=== PATIENT | female | born 1955 | race American Indian/Alaskan Native ===

== ENCOUNTER 2017-07-19 09:47 | Day surgery (SDC) | payer MEDICAID ==
[2017-07-15 11:10] VITALS: BMI 44.7
[2017-07-19] MEDS ORDERED: Bupivacaine HCl 0.25% PF (10 ml) Inj ONE (12:10)
[2017-07-19] MEDS ORDERED: Lidocaine 1% Inj (20ml) ONE (12:10)
[2017-07-19] MEDS ORDERED: ceFAZolin IV 1 gm in Dextrose 2 GM/100 ML BAG IVPB ONE (12:10)
[2017-07-19] MEDS ORDERED: Midazolam 2 MG/2 ML VIAL ONE (12:13)
[2017-07-19] MEDS ORDERED: Propofol 10 mg/ml Inj (20 ML) ONE ×2 (12:13→12:31)
[2017-07-19] MEDS: HYDROmorphone 0.5 mg/0.5 ml ISec IVP PRN (13:30)
[2017-07-19] MEDS ORDERED: Oxycodone/Acetaminophen 5/325 mg Tab PO PRN (13:47)
[2017-07-19 15:25] VITALS: RESP 16; TEMP 97.3
[2017-07-19 17:46] VITALS: BP 129/99; PULSE 77; O2SAT 96
--- NOTE | 2017-07-19 22:29 | OP ---
PROCEDURE DATE: 07/19/2017 PREOPERATIVE DIAGNOSIS: Left breast mass x2. POSTOPERATIVE DIAGNOSIS: Left breast mass x2. PROCEDURE: 1. Wide and deep excision of a periareolar breast mass (). 2. Wide and deep excision of inferior left breast mass (). 3. Advancement flap closure (85641). 4. Repair of chest wall blood vessel (59322). SURGEON: Forrest Leyva MD TYPE OF ANESTHESIA: General. ESTIMATED BLOOD LOSS: 30 mL POSTOPERATIVE CONDITION: Stable. INDICATIONS FOR SURGERY: This is a 61-year-old female with two separate inflammatory mass in the past, who will undergo wide and deep excision of both. PROCEDURE: The patient was taken to the operating room, IV sedation was administered, both the areas were anesthetized after the left breast was prepped and draped. Attention was first time to the inferior breast mass, elliptical incision was made and the mass was excised down into the chest wall fascia. Bleeding was controlled with using the Bovie. Chest wall blood vessel was repaired. The wound was irrigated with copious amounts of saline solution. An advancement flap closure of left greater than 30 cm was performed by widely mobilizing using the Bovie and using multiple layers of Monocryl, subcuticular Monocryl and skin clips. The above was repeated on the periareolar incision in which a wide deep excision was made, it was excised deep into the breast, bleeding was controlled using the Bovie, advancement flaps were made and advancement flap closure was again performed with multiple layers of Vicryl, subcuticular Vicryl and skin clips. The patient tolerated the procedure well and returned to recovery in stable condition. Forrest Leyva MD
== END 2017-07-19 17:41 | disposition home or self-care (01) ==
LOC: C.SDS 09:47
PROVIDERS: ATTEND Surgery
DX: T14.8XXA Other injury of unspecified body region, initial encounter (principal); N63.23 Unspecified lump in the left breast, lower outer quadrant
CPT/HCPCS: 14301; 19120; 87070; 88307; J1170; J2250; J2405; J2704; J2765; J3010

== ENCOUNTER 2018-03-02 01:10 | Emergency (ER) | payer MEDICAID ==
[2018-03-02 01:10] VITALS: BMI 44.7
[2018-03-02 01:21] VITALS: RESP 20
--- NOTE | 2018-03-02 03:01 | C.PDOC ---
History Of Present Illness 62 year old female presents to the ER with a complaint of left hand pain. Patient states she accidentally hit her left hand on an iron door earlier today , she did not feel pain at the time but states she felt moderate pain tonight while trying to sleep which prompted visit. Patient reports taking ibuprofen at 22:00 with no relief. Denies blunt trauma, fall, weakness, or numbness. Time Seen by Provider: 03/02/18 01:25 Chief Complaint (Nursing): Upper Extremity Problem/Injury History Per: Patient History/Exam Limitations: no limitations Onset/Duration Of Symptoms: Hrs Current Symptoms Are (Timing): Still Present Recent travel outside of the [place]: No Past Medical History Reviewed: Historical Data, Nursing Documentation, Vital Signs Vital Signs: Last Vital Signs Temp 97.2 F L 03/02/18 03:21 Pulse 82 03/02/18 03:21 Resp 20 03/02/18 03:21 BP 116/70 03/02/18 03:21 Pulse Ox 96 03/02/18 03:21 - Medical History PMH: Arthritis, Bronchitis, COPD (LAST HOSPITALIZED 11/2016), HTN, Hypercholesterolemia - [facility] Procedures ASSISTANCE WITH RESPIRATORY VENTILATION, <24 HRS, CPAP (11/30/16) DRAINAGE OF LEFT BREAST, OPEN APPROACH (06/21/16) TRANSFER CHEST SKIN, EXTERNAL APPROACH (06/21/16) Family History: States: Unknown Family Hx - Social History Hx Tobacco Use: No Hx Alcohol Use: No Hx Substance Use: No - Immunization History Hx Tetanus Toxoid Vaccination: No Hx Influenza Vaccination: Yes Hx Pneumococcal Vaccination: No Review Of Systems Musculoskeletal: Positive for: Hand Pain Neurological: Negative for: Weakness, Numbness Physical Exam - Physical Exam Appears: Non-toxic Skin: Normal Color, Warm, Dry Head: Atraumatic, Normacephalic Eye(s): bilateral: Normal Inspection Extremity: Tenderness (Minimal on palpation of dorsal aspect of left hand), Capillary Refill (<2 seconds), No Deformity, No Swelling, No Other (Erythema, ecchymosis) Pulses: Left Radial: Normal, Right Radial: Normal Neurological/Psych: Oriented x3, Normal Speech, Normal Motor, Normal Sensation ED Course And Treatment O2 Sat by Pulse Oximetry: 97 (Room air) Pulse Ox Interpretation: Normal - Other Rad Left hand x-ray X-Ray: Interpreted by Me, Viewed By Me Interpretation: No acute fracture or dislocation. Progress Note: Left hand x-ray ordered, result were negative. Ultram administered for pain with relief. Patient is resting comfortably in the ER in no acute distress, vitals are stable, will discharge home with Rx and instructions to follow up with PMD or return if symptoms worsen. Disposition Counseled Patient/Family Regarding: Diagnosis, Need For Followup, Rx Given - Disposition Referrals: Amanda Rosales MD [Staff Provider] - Disposition: HOME/ ROUTINE Disposition Time: 02:59 Condition: STABLE Additional Instructions: Please follow up with PMD Continue ICE Take naproxen for pain Return to ER if worse Prescriptions: Naproxen [Naprosyn] 1 tab PO BID PRN #20 tab PRN Reason: Pain Instructions: Contusion (DC) Forms: Accompanied To ED By:, [employer] (French) - Clinical Impression Clinical Impression: Contusion of hand, left - PA / ELECTRICAL MAINTENANCE WORKER / Resident Statement MD/DO has reviewed & agrees with the documentation as recorded. - Scribe Statement The provider has reviewed the documentation as recorded by the Scribe Lemuel Camara All medical record entries made by the Amanuelibeli were at my direction and personally dictated by me. I have reviewed the chart and agree that the record accurately reflects my personal performance of the history, physical exam, medical decision making, and the department course for this patient. I have also personally directed, reviewed, and agree with the discharge instructions and disposition.
[2018-03-02 03:28] VITALS: BP 116/70; PULSE 82; TEMP 97.2
[2018-03-02 03:38] VITALS: O2SAT 97
--- NOTE | 2018-03-02 08:58 | RAD ---
PROCEDURE: Left Hand Radiographs. HISTORY: pain to left hand, blunt trauma COMPARISON: None. FINDINGS: BONES: No acute fracture. 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 There is productive bony change about the ununited fracture. JOINTS: Osteoarthritis at [facility] 1. The remaining joint spaces and articular surfaces are preserved. There are no articular erosions. The ulnar styloid process is preserved. SOFT TISSUES: Normal. OTHER FINDINGS: None. IMPRESSION: Osteoarthritis at [facility] 1. 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
== END 2018-03-02 03:21 | disposition home or self-care (01) ==
LOC: C.ER 01:10
DX: S60.222A Contusion of left hand, initial encounter (principal); W22.8XXA Striking against or struck by other objects, initial encounter

== ENCOUNTER 2018-10-12 01:51 | Emergency (ER) | payer MEDICAID ==
[2018-10-12 01:51] VITALS: BMI 44.7
[2018-10-12] MEDS ORDERED: Dexamethasone 4 mg/1 ml IM STA (03:20)
[2018-10-12] MEDS ORDERED: Dexamethasone 4 mg/1 ml ONE (03:35)
--- NOTE | 2018-10-12 04:07 | C.PDOC ---
History Of Present Illness 63 year old female presents to the ED c/o left hand pain since yesterday. Patient was seen by her PMD and as per patient she was not given anything. Patient states she was given Tramadol in the past but she recently ran out of them "They do not help anyway". Patient states she is now feeling tingling in her left hand. Patient denies rash, injury, fall, trauma, weakness, numbness. Time Seen by Provider: 10/12/18 02:56 Chief Complaint (Nursing): Upper Extremity Problem/Injury History Per: Patient History/Exam Limitations: no limitations Onset/Duration Of Symptoms: Days Current Symptoms Are (Timing): Still Present Quality: "Pain" Exacerbating Factor(s): Movement Recent travel outside of the [place]: No Additional History Per: Patient Past Medical History Reviewed: Historical Data, Nursing Documentation, Vital Signs Vital Signs: Last Vital Signs Temp 99.1 F 10/12/18 02:09 Pulse 84 10/12/18 02:09 Resp 20 10/12/18 02:09 BP 168/83 H 10/12/18 02:09 Pulse Ox 100 10/12/18 02:09 - Medical History PMH: Arthritis, Bronchitis, COPD (LAST HOSPITALIZED 11/2016), HTN, Hypercholesterolemia Denies: Chronic Kidney Disease Surgical History: No Surg Hx - [facility] Procedures ASSISTANCE WITH RESPIRATORY VENTILATION, <24 HRS, CPAP (11/30/16) DRAINAGE OF LEFT BREAST, OPEN APPROACH (06/21/16) TRANSFER CHEST SKIN, EXTERNAL APPROACH (06/21/16) Family History: States: Unknown Family Hx - Social History Hx Tobacco Use: No Hx Alcohol Use: Yes Hx Substance Use: No - Immunization History Hx Tetanus Toxoid Vaccination: No Hx Influenza Vaccination: Yes Hx Pneumococcal Vaccination: No Review Of Systems Constitutional: Negative for: Fever, Chills Gastrointestinal: Negative for: Nausea, Vomiting, Abdominal Pain Musculoskeletal: Positive for: Hand Pain Skin: Negative for: Rash Neurological: Negative for: Weakness, Numbness, Headache Physical Exam - Physical Exam Appears: Non-toxic, No Acute Distress Skin: Normal Color, Warm, Dry Head: Atraumatic, Normacephalic Eye(s): bilateral: Normal Inspection Extremity: Normal ROM, Tenderness (minimal left hand dorsal aspect), Capillary Refill (< 2 seconds), No Deformity, No Swelling, Other (no trigger finger prese nt ) Pulses: Left Radial: Normal, Right Radial: Normal Neurological/Psych: Oriented x3, Normal Speech, Normal Cognition, Normal Motor, Normal Sensation Gait: Steady ED Course And Treatment O2 Sat by Pulse Oximetry: 100 (ON RA) Pulse Ox Interpretation: Normal Progress Note: Plan: - Decadron 8 mg IM. - Toradol 30 mg IM. Pt is now sleeping comfortably in ED and reports pain improvement. Placed in sling and prednisone prescribed and albino follow up with PMD Reevaluation Time: 04:00 Reassessment Condition: Improved Disposition Counseled Patient/Family Regarding: Diagnosis, Need For Followup, Rx Given - Disposition Referrals: Amanda Rosales MD [Staff Provider] - Disposition: HOME/ ROUTINE Disposition Time: 04:04 Condition: STABLE Additional Instructions: Use sling for support Continue current pain management Continue prednisone Return to ER if worse Prescriptions: predniSONE [Prednisone] 40 mg PO DAILY #10 tab Instructions: Hand Pain (DC) Forms: [employer] (Syriac) - Clinical Impression Clinical Impression: Hand pain, left, Arthralgia of hand, left - PA / HOSPITAL SOCIAL WORKER / Resident Statement MD/DO has reviewed & agrees with the documentation as recorded. - Scribe Statement The provider has reviewed the documentation as recorded by the Scribe Roland Garrett All medical record entries made by the Scribe were at my direction and personally dictated by me. I have reviewed the chart and agree that the record a ccurately reflects my personal performance of the history, physical exam, medical decision making, and the department course for this patient. I have also personally directed, reviewed, and agree with the discharge instructions and disposition.
[2018-10-12 04:42] VITALS: BP 129/68; PULSE 76; RESP 14; TEMP 97.8
[2018-10-12 05:00] VITALS: O2SAT 100
== END 2018-10-12 04:53 | disposition home or self-care (01) ==
LOC: C.ER 01:51
DX: M79.642 Pain in left hand (principal); M25.542 Pain in joints of left hand; I10 Essential (primary) hypertension; E78.00 Pure hypercholesterolemia, unspecified
CPT/HCPCS: 96372; 99284; J1100; J1885

== ENCOUNTER 2018-10-22 12:32 | Emergency (ER) | payer MEDICAID | END 2018-10-22 14:13 | disposition home or self-care (01) | LOC: C.ER 12:32 ==

== ENCOUNTER 2018-11-15 08:08 | Emergency (ER) | payer MEDICAID ==
[2018-11-15 08:08] VITALS: BMI 44.7
--- NOTE | 2018-11-15 08:44 | C.PDOC ---
History Of Present Illness 63 [facility] of pain in her right hand that began yesterday. She describes the pain as generalized and has had swelling in her right wrist since September. She has been seen by several practitioners and orthopedic specialists and has been diagnosed with Rheumatoid Arthritis. Patient says she just started taking Methotrixate a few days ago, but was not prescribed anything for the pain. She states that her pipe bowl paint trimmer gave her a prescription yestreday, but the pharmacy couldn't read it and was trying to call her doctor to clarify without success. She is currently not taking any pain medication. She denies any numbness or weakness. Time Seen by Provider: 11/15/18 08:26 Chief Complaint (Nursing): Upper Extremity Problem/Injury History Per: Patient, EMS History/Exam Limitations: no limitations Onset/Duration Of Symptoms: Days (1) Current Symptoms Are (Timing): Still Present Quality: "Pain" Past Medical History Reviewed: Historical Data, Nursing Documentation, Vital Signs Vital Signs: Last Vital Signs Temp 97.4 F L 11/15/18 08:20 Pulse 86 11/15/18 08:20 Resp 20 11/15/18 08:20 BP Pulse Ox 99 11/15/18 08:20 - Medical History PMH: Arthritis, Bronchitis, COPD (LAST HOSPITALIZED 11/2016), HTN, Hypercholesterolemia, Rheumatoid Arthritis Denies: Chronic Kidney Disease Surgical History: No Surg Hx - [facility] Procedures ASSISTANCE WITH RESPIRATORY VENTILATION, <24 HRS, CPAP (11/30/16) DRAINAGE OF LEFT BREAST, OPEN APPROACH (06/21/16) TRANSFER CHEST SKIN, EXTERNAL APPROACH (06/21/16) Family History: States: Unknown Family Hx - Social History Hx Tobacco Use: No Hx Alcohol Use: Yes Hx Substance Use: No - Immunization History Hx Tetanus Toxoid Vaccination: No Hx Influenza Vaccination: Yes Hx Pneumococcal Vaccination: No Review Of Systems Constitutional: Negative for: Fever, Chills, Weakness Cardiovascular: Negative for: Chest Pain Respiratory: Negative for: Cough, Shortness of Breath Musculoskeletal: Positive for: Shoulder Pain (right shoulder), Hand Pain (right hand pain and right wrist swelling) Neurological: Negative for: Weakness, Numbness, Dizziness Physical Exam - Physical Exam Appears: Well, Non-toxic, No Acute Distress Skin: Normal Color, Warm, Dry Head: Atraumatic, Normacephalic Neck: Normal ROM, Supple Chest: Symmetrical, No Deformity Respiratory: No Accessory Muscle Use Extremity: Tenderness (right dorsal wrist), Capillary Refill (<2 seconds), Swelling (right hand and wrist) Pulses: Left Radial: Normal, Right Radial: Normal Neurological/Psych: Oriented x3, Normal Speech, Normal Cognition ED Course And Treatment O2 Sat by Pulse Oximetry: 99 (RA) Progress Note: Patient given Decadron IM,Toradol IM without improvement. Ordered Percocet PO with partial improvement. Disposition - Disposition Disposition: HOME/ ROUTINE Disposition Time: 11:53 Condition: STABLE Additional Instructions: Follow up with PMD, Blanking Press Operator and pipe bowl paint trimmer DAVINA. Return to ED if feel worse. Prescriptions: traMADol [Ultram] 50 mg PO Q6 #10 tab Instructions: Chronic Pain (DC), Rheumatoid Arthritis (ED) Forms: [employer] (Scottish) - Clinical Impression Clinical Impression: Chronic pain of multiple joints, Rheumatoid arthritis - PA / COLORMAN / Resident Statement MD/DO has reviewed & agrees with the documentation as recorded. (Jane Castillo) - Scribe Statement The provider has reviewed the documentation as recorded by the Scribe (Jane Castillo) All medical record entries made by the Scribe were at my direction and personally dictated by me. I have reviewed the chart and agree that the record accurately reflects my personal performance of the history, physical exam, medical decision making, and the department course for this patient. I have also personally directed, reviewed, and agree with the discharge instructions and disposition.
[2018-11-15] MEDS ORDERED: Dexamethasone 4 mg/1 ml IM STA (08:46)
[2018-11-15] MEDS ORDERED: Oxycodone/Acetaminophen 5/325 mg Tab PO STA (10:34)
[2018-11-15] MEDS ORDERED: Oxycodone/Acetaminophen 5/325 mg Tab ONE (10:45)
[2018-11-15 12:30] VITALS: BP 126/79; PULSE 88; RESP 20; TEMP 97.8
[2018-11-15 16:29] VITALS: O2SAT 99
== END 2018-11-15 12:30 | disposition home or self-care (01) ==
LOC: C.ER 08:08
DX: G89.29 Other chronic pain (principal); M06.9 Rheumatoid arthritis, unspecified; M25.50 Pain in unspecified joint; E78.00 Pure hypercholesterolemia, unspecified; I10 Essential (primary) hypertension
CPT/HCPCS: 96372; 99285; J1100; J1885